=== PATIENT | male | born 1930 | race Caucasian/White ===

== ENCOUNTER 2017-01-20 06:31 | Day surgery (SDC) | payer MEDICARE ==
[2017-01-20] MEDS ORDERED: Lidocaine 1.5% EPI 1:200,000* 30 ML SDV ONE (07:11)
[2017-01-20] MEDS ORDERED: Bupivacaine 0.25% SDV* 30 ML ONE (07:29)
[2017-01-20 08:25] VITALS: BP 159/80
--- NOTE | 2017-01-24 13:17 | OP ---
DATE OF OPERATION: 01/20/17 [facility] DATE OF : 34 SURGEON: Armand Aaron MD CHALKER SOLES: MARGARITA Bailey ANESTHESIOLOGIST: None. ANESTHESIA: Local only with 1.5% lidocaine with epinephrine and bicarbonate. PRE-OP DIAGNOSIS: Right trigger thumb. POST-OP DIAGNOSIS: Right trigger thumb. OPERATIVE PROCEDURE: Right trigger thumb release. INDICATIONS: Ludwig is an 86-year-old gentleman for whom I injected the right trigger thumb. It resolved and recurred. We talked about his treatment options and he wanted to do the trigger finger release. FINDINGS: As expected. ESTIMATED BLOOD LOSS: 2 mL. COMPLICATIONS: None. DESCRIPTION OF PROCEDURE: Ludwig was seen in the preoperative holding area. The correct side, site, and procedure were identified. We had a time out and I then anesthetized the operative area with 1.5% lidocaine with epinephrine and bicarbonate. Short time later, we came back to the operating room and the arm was prepped and draped in the usual fashion and a formal time-out was performed. I began by making a 1-cm transverse incision in the MP joint flexion crease of the right thumb. Dissection was performed bluntly with the tenotomy scissors to release all the soft tissue right off of the flexor tendon sheath. Ragnell retractors were placed, under direct visualization the A1 [place] was incised in the midline with the 15-blade. The release was extended proximally and distally using the tenotomy scissors taking great care to avoiding damage to the digital nerves. Once I had the release completed, I had him flex and extend the thumb multiple times. There was absolutely no triggering. We irrigated out the wounds. Skin was closed with 4-0 nylon suture. Wound was dressed with Xeroform, some 1-inch Alen, and a Coban dressing. He was then taken to recovery room in stable condition. [id number]/[facility] #: [id number] [facility] CENTERSurinder
== END 2017-01-20 08:20 | disposition home or self-care (01) ==
LOC: OREAST 06:31
PROVIDERS: ATTEND Orthopaedic Surgery Hand Surgery
DX: M65.311 Trigger thumb, right thumb (principal); Z79.82 Long term (current) use of aspirin

== ENCOUNTER 2017-08-02 10:41 | Emergency (ER) | payer MEDICARE ==
--- OUTSIDE RECORDS SUMMARY | 2017-08-02 10:56 | XMS REPORT ---
:1930 External Reference #:[id number] Author Organization [facility] Address [address], [address] [place] [address] Phone [phone] Care Team Providers Name Role Phone Jaden Joshi DO Primary Care Physician Unavailable Payers Type Date Identification Numbers Payment Provider Subscriber Commercial Policy Number: [id number] [employer] Ludwig Stacy PayID: [id number] [address] [address] [place] [address] Problems Date Description Provider Status Onset: 01/31/2013 Dyspnea Alexander Morrison M.D., FACC Onset: 01/31/2013 Coronary arteriosclerosis Alexander Morrison M.D., FACC Onset: 01/31/2013 Atrial fibrillation Alexander Morrison M.D., FACC Onset: 01/31/2013 Benign essential hypertension Alexander Morrison M.D., FACC Onset: 01/31/2013 Hyperlipidemia Alexander Morrison M.D., FACC Onset: 04/25/2013 Malaise and fatigue Alexander Morrison M.D., FACC Onset: 09/02/2014 Pure hypercholesterolemia Active Onset: 09/02/2014 Essential hypertension Active Onset: 09/02/2014 Acute myocardial infarction Active Onset: 08/01/2014 Pure hypercholesterolemia Jaden Joshi DO Active Onset: 04/05/2013 Hypothyroidism Jaden Joshi DO Active Onset: 04/05/2013 Gastroesophageal reflux disease Jaden Joshi DO Active Onset: 04/05/2013 Obesity Jaden Joshi DO Active Onset: 11/29/2012 Crohn's disease of large bowel Konrad Bishop MD Active Onset: 06/04/2008 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 Onset: 10/10/2007 Degenerative joint disease involving Konrad Bishop MD Active multiple joints Onset: 10/10/2007 Diverticulitis of colon Konrad Bishop MD Active Onset: 04/04/2006 Anemia Konrad Bishop MD Active Onset: 09/30/2005 Abdominal aortic aneurysm without Konrad Bishop MD Active rupture Onset: 09/30/2005 Abnormal weight gain Konrad Bishop MD Active Onset: 10/14/2004 Mixed hyperlipidemia Konrad Bishop MD Active Onset: 12/03/2016 Pre-excitation syndrome Alexander Morrison M.D., [facility] Family History Date Family Member(s) Problem(s) Comments Father due to MS () - 78 : (age 85 Years) Mother due to MS Social History Type Date Description Comments Lives With Alone Diet Patient follows no dietary restrictions Occupation [employer]L's/IADL's Independent with all ADL's Cigarette Use Former Cigarette Smoker Cigarette Use 1961 Quit Cigarette Use Pack Years - 11 ETOH Use Occasionally consumes alcohol Daily Caffeine Consumes on average 2 cups of regular coffee per day Allergies, Adverse Reactions, Alerts Date Description Reaction Status Severity Comments 01/31/2013 NKDA active Medications Medication Date Status Form Strength Qnty SIG Indications Ordering Provider Sertraline HCL Active Tablets 50mg 30tabs 1 po qd Unknown 000 Terazosin HCL Active Capsules 5mg 1 po qd Unknown 000 Atorvastatin Active Tablets 80mg 1 by Unknown Calcium 000 mouth every day Metoprolol Active Tablets 50mg 1 by Unknown Tartrate 000 mouth twice a day Brilinta Active Tablets 90mg 1 tab Unknown 000 by mouth twice a day Eliquis Active Tablets 5mg 1 tab Unknown 000 by mouth twice a day Digoxin Active Tablets 125mcg 1 by Unknown 000 mouth every day Furosemide Active Tablets 20mg 1 by Unknown 000 mouth every day Plavix Hx Tablets 75mg 14tabs 1 po qd [address] Duggan Juventino Townsend., [facility] Omeprazole Hx Capsules 20mg 30caps 1 po qd Unknown [address] Levothyroxine Hx Tablets 50mcg 60tabs 1 po qd Unknown Sodium 000 Enalapril Hx Tablets 5mg 90tabs po qd Unknown Maleate 000 Vytorin Hx Tablets 10-80mg 90tabs 1 po qd Unknown 000 Carvedilol Hx Tablets 12.5mg 60tabs 1 po Unknown 000 - bid [address] Ec Hx Tablets [address] 325mg 90tabs 1 po qd Unknown 000 Apriso Hx Caps ER 0.375gm 4 po qd Unknown 000 24HR Simvastatin Hx Tablets 80mg 90tabs 1 by Ileana 000 mouth Simonetta every , day 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, 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 Vital Signs Date Vital Result Comment 07/05/2017 BP Systolic 122 mmHg BP Diastolic 70 mmHg Heart Rate 71 /min Respiratory Rate 16 /min Weight 186.00 lb 12/03/2016 BP Systolic Sitting Right Arm 118 mmHg BP Diastolic Sitting Right Arm 68 mmHg Heart Rate 84 /min Respiratory Rate 18 /min Height 69 inches 5'9" Weight 194.00 lb BMI (Body Mass Index) 28.6 kg/m2 BSA (Body Surface Area) 2.04 m2 [place] body weight in kilograms 73 11/26/2015 BP Systolic Sitting Left Arm 122 mmHg BP Diastolic Sitting Left Arm 60 mmHg Heart Rate 77 /min Height 69 inches 5'9" Weight 194.00 lb BMI (Body Mass Index) 28.6 kg/m2 BSA (Body Surface Area) 2.04 m2 [place] body weight in kilograms 73 11/22/2014 BP Systolic Sitting Left Arm 128 mmHg BP Diastolic Sitting Left Arm 62 mmHg Heart Rate 80 /min Respiratory Rate 16 /min Height 69 inches 5'9" Weight 191.00 lb BMI (Body Mass Index) 28.2 kg/m2 BSA (Body Surface Area) 2.03 m2 09/03/2014 BP Systolic 130 mmHg BP Diastolic 70 mmHg 09/03/2014 BP Systolic 130 mmHg BP Diastolic 70 mmHg Heart Rate 76 /min Height 69 inches Weight 190.00 lb BMI (Body Mass Index) 28.1 kg/m2 08/06/2014 Heart Rate 78 /min Respiratory Rate 20 /min Height 67 inches Weight 190.00 lb BMI (Body Mass Index) 29.8 kg/m2 04/25/2014 BP Systolic Sitting Right Arm 130 mmHg BP Diastolic Sitting Right Arm 68 mmHg Heart Rate 77 /min Respiratory Rate 20 /min Height 69 inches 5'9" Weight 195.00 lb BMI (Body Mass Index) 28.8 kg/m2 BSA (Body Surface Area) 2.04 m2 10/17/2013 BP Systolic Sitting Right Arm 142 mmHg BP Diastolic Sitting Right Arm 80 mmHg Heart Rate 78 /min Respiratory Rate 16 /min Height 69 inches 5'9" Weight 194.00 lb BMI (Body Mass Index) 28.6 kg/m2 BSA (Body Surface Area) 2.04 m2 04/25/2013 BP Systolic Sitting Right Arm 122 mmHg BP Diastolic Sitting Right Arm 64 mmHg Heart Rate 60 /min Respiratory Rate 16 /min Height 69 inches 5'9" Weight 193.00 lb BMI (Body Mass Index) 28.5 kg/m2 BSA (Body Surface Area) 2.03 m2 02/19/2013 BP Systolic Sitting Right Arm 130 mmHg BP Diastolic Sitting Right Arm 76 mmHg Heart Rate 60 /min Respiratory Rate 16 /min Height 69 inches 5'9" Weight 196.00 lb BMI (Body Mass Index) 28.9 kg/m2 BSA (Body Surface Area) 2.05 m2 01/31/2013 BP Systolic Sitting Right Arm 124 mmHg BP Diastolic Sitting Right Arm 76 mmHg Heart Rate 76 /min Respiratory Rate 16 /min Height 69 inches 5'9" Weight 191.00 lb BMI (Body Mass Index) 28.2 kg/m2 BSA (Body Surface Area) 2.03 m2 Results Test Date Test Result H/L Range Note Comprehensive Metabolic Panel 02/24/2013 Glucose 95 mg/dL 76-115 BUN 24 mg/dL High 5-23 Creatinine 0.9 mg/dL 0.5-1.4 Glom Filtration Rate, Estimate >60 mL/min >60 If >60 mL/min >60 1 BUN/Creat 26.6 ratio Sodium 141 mmol/L 136-145 Potassium 4.4 mmol/L 3.5-5.1 Chloride 107 mmol/L 98-107 Carbon Dioxide 28 mEq/L 18-29 Anion Gap 10 mEq/L 8-16 Calcium 8.4 mg/dL Low 8.5-10.1 Total Protein 8.1 g/dL High 6.3-8.0 Albumin 3.8 g/dL 3.5-5.0 Globulin 4.3 g/dL 1.9-4.3 Alb/Glob 0.9 ratio Bilirubin,Total 0.5 mg/dL 0.2-1.2 Sgot/Ast 16 U/L 16-40 SGPT/Alt 26 U/L Low 30-65 Alkaline Phosphatase 94 U/L 50-136 CBC W/Automated Diff 02/19/2013 White Blood Count 4.7 K/uL 3.4-10.5 Red Blood Count 3.64 M/uL Low 4.20-5.80 Hemoglobin 12.0 gm/dL Low 12.8-17.0 Hematocrit 36.1 % Low 38.0-48.0 Mean Cell Volume 99.2 fl High 80.0-96.0 Mean Corpuscular HGB 33.0 pg 27.0-33.0 Mean Corpuscular HGB Conc 33.2 g/dL 31.7-36.0 Platelet Count 164 K/uL 150-400 Red Cell Distri Width SD 49.2 fl 36-51 Red Cell Distri Width %CV 13.9 % 11.6-15.8 Mean Platelet Volume 11.7 fL High 6.6-10.6 Neut% 49.8 % 33.0-73.0 Lymph % 30.7 % 17.0-56.0 Stokes % 13.9 % High 0.0-10.0 Eo% 5.4 % High 0.0-5.0 Bas% 0.2 % 0.1-1.0 Neut# 2.32 K/uL 1.8-7.0 Lymph # 1.43 K/uL 1.2-4.0 Stokes # 0.65 K/uL High 0.0-0.6 Eos # 0.25 K/uL 0.0-0.5 Baso # 0.01 K/uL Low 0.1-0.2 Laboratory test finding 02/19/2013 Comprehensive Metabolic Panel See Note 2 1 Note: Persistent reduction for 3 months or more in an eGFR <60 mL/min/1.73 m2 defines CKD. Patients with eGFR values >/=60 mL/min/1.73 m2 may also have CKD if evidence of persistent proteinuria is present. The original MDRD equation for estimated GFR is not valid for patients less than 18 years of age. Additional information may be found at www.kdoqi.org. 2 SPECIMEN IS GROSSLY HEMOLYZED, PLEASE CALL PHYSICIAN'S OFFICE TO ARRANGE FOR RECOLLECTION, THANK YOU. Procedures Date CPT Code Description Status 07/05/2017 77699 EKG-Tracing And Report Completed 12/03/2016 60615 EKG-Tracing And Report Completed 11/26/2015 24939 EKG-Tracing And Report Completed 04/25/2014 60867 EKG-Tracing And Report Completed 02/14/2013 39097 Stress Test Interpre And Report Only Completed 02/14/2013 61190 Stress Test Physician Super Only Completed 02/14/2013 81969 Stress Test Physician Super Only Completed 02/14/2013 97379 Myocardial Imaging Tomographic Multiple Study At Rest Completed Or Stress 01/31/2013 90243 EKG-Tracing And Report Completed 01/02/2013 53166 Echocardiogram Complete Completed 05/13/2009 08350 Stress Test Interpre And Report Only Completed 05/13/2009 28887 Stress Test Physician Super Only Completed Encounters Type Date Location Provider CPT E/M Dx Office Visit 07/05/2017 11:15a [place] [address] I25.10 I25.5 I71.4 I45.6 I48.0 Office Visit 12/03/2016 1:20p Cardiology Office Que [place], 25857 I25.10 M.DErnie, FACC I71.4 I45.6 Office Visit 11/26/2015 10:40a Cardiology Office Ileana Fult[place], 09295 I25.10 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, 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 I71.4 I10 E78.5 Office Visit 11/22/2014 11:20a Cardiology Office [place], 80590 780.79 M.D., FACC 414.01 401.1 Office Visit 04/25/2014 8:30a Cardiology Office [place], 43696 414.01 M.D., FACC 780.79 786.05 401.1 272.4 Office Visit 10/17/2013 11:40a Cardiology Office Ileana [place], 13447 414.01 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, 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 Will need repeated Echo and he will likely benefit greatly from cardiac rehab. On Brilinta, Lipitor, Metoprolol. Not on ACEI due to ? hypotension while in hospital.I25.5 Ischemic cardiomyopathyComments:Has wide QRS consistent with LBBB. Will need to repeat Echo for EF reassessment.Pt was on Enalapril previously which was stopped at [facility] due to low BP and to allow increase in beta blockade for rate controlling purposes while in Afib. BP today is reasonable. He still feels weak and somewhat lightheaded with positional changes. IF EF < 40% on repeated Echo, will need to try re challenging him with ACEI/Entresto and if EF < 35%, will need to discuss possible device fcciyqhY65.4 Abdominal aortic aneurysm, without ruptureComments: CT done 12/2016 showed unchanged 4.7 cm AAA. EriftmaeoryiQ21.6 Pre-excitation syndromeComments:It appears that even while in IVANA in hospital, he was not conducting through accessory pathway. His Afib was very likely ischemic. Will recheck ECG on next visit. May need to use Amiodarone in future if recurrent frequent jadktgijetrtkL69.0 Paroxysmal atrial fibrillationComments:On Eliquis and Metoprolol / Digoxin. Will get a 30 day monitoring at next office visit since his Afib was very likely ischemic. Will need to consider risks and benefits of dual therapy with Plavix and Eliquis. May consider ILR for skilled nursing AF burden monitoringAllFollow up:6-8 weeks
[2017-08-02 11:16] VITALS: BP 126/69
--- NOTE | 2017-08-02 11:57 | RAD ---
HISTORY: Cough COMPARISONS: None VIEWS: 4: Frontal dual-energy and lateral views of the chest. FINDINGS: CARDIOMEDIASTINAL SILHOUETTE: The cardiomediastinal silhouette is normal. ISABELLA: The isabella are normal. PLEURA: The costophrenic angles are sharp. No pleural abnormalities are noted. LUNG PARENCHYMA: There is hyperinflation with flattening of the diaphragm and expansion of the AP diameter of the chest. ABDOMEN: The upper abdomen is clear. There is no subphrenic gas. BONES AND SOFT TISSUES: Degenerative changes are noted along the spine. OTHER: None. IMPRESSION: NO ACTIVE CARDIOPULMONARY DISEASE.
--- NOTE | 2017-08-02 12:06 | UC ---
Respiratory Complaint HPI - HPI Summary HPI Summary: cough x 2 weeks + chest congestion , productive cough with yellow sputum no fever, + chills, + sob - History of Current Complaint Chief Complaint: UCRespiratory Stated Complaint: COUGH *2WEEKS Time Seen by Provider: 08/02/17 11:32 Hx Obtained From: Patient Onset/Duration: Gradual Onset, Lasting Weeks - 2, Still Present Timing: Constant Severity Initially: Moderate Severity Currently: Moderate Pain Intensity: 0 Character: Cough: Productive Aggravating Factors: Exertion, Deep Breaths Associated Signs And Symptoms: Positive: Dyspnea, Chills, URI, Nasal Congestion. Negative: Fever, Pleuritic Chest Pain, Wheezing, Hemoptysis, Dizziness, Calf Pain, Calf Swelling, Edema - Allergies/Home Medications Allergies/Adverse Reactions: Allergies Allergy/AdvReac Type Severity Reaction Status Date / Time No Known Allergies Allergy Verified 08/02/17 11:13 Home Medications: Home Medications Aspirin TAB* [Aspirin 325 MG TAB*] 325 mg PO DAILY 08/02/17 [History Confirmed 08/02/17] PMH/Surg Hx/FS Hx/Imm Hx Cardiovascular History: Cardiac Disease, Hypertension - Surgical History Surgical History: None - Family History Known Family History: Positive: Hypertension - Social History Alcohol Use: Occasionally Substance Use Type: None Smoking Status (MU): Former Smoker Review of Systems Constitutional: Chills, Fatigue Skin: Negative Eyes: Negative ENT: Nasal Discharge Respiratory: Shortness Of Breath, Cough Cardiovascular: Negative Gastrointestinal: Negative Is Patient Immunocompromised?: No All Other Systems Reviewed And Are Negative: Yes Physical Exam Triage Information Reviewed: Yes Appearance: Well-Appearing, No Pain Distress, Well-Nourished Vital Signs: Initial Vital Signs Temp 99 F 08/02/17 11:11 Pulse 92 08/02/17 11:11 Resp 20 08/02/17 11:11 BP 126/69 08/02/17 11:11 Pulse Ox 97 08/02/17 11:11 Vital Signs Reviewed: Yes Eyes: Positive: Conjunctiva Clear ENT: Positive: Normal ENT inspection, Hearing grossly normal, Pharynx normal, Nasal drainage Neck: Positive: Supple, Nontender, No Lymphadenopathy Respiratory: Positive: Crackles - left upper lungs Cardiovascular: Positive: RRR, No Murmur, Pulses Normal Skin Exam: Normal UC Diagnostic Evaluation - Laboratory O2 Sat by Pulse Oximetry: 97 Diagnostic Studies Comment: chest xray : no acute disease Respiratory Course/Dx - Differential Dx/Diagnosis Provider Diagnoses: pneumonia Discharge - Discharge Plan Condition: Stable Disposition: HOME Prescriptions: Benzonatate CAP* [Tessalon 100 MG CAP*] 100 mg PO TID PRN #21 cap PRN Reason: Cough DOXYcycline CAP(*) [DOXYcycline 100MG CAP(*)] 100 mg PO BID #20 cap Patient Education Materials: Pneumonia (ED) Referrals: Jaden Joshi DO [Primary Care Provider] - 3 Days
== END 2017-08-02 12:05 | disposition home or self-care (01) ==
LOC: UCCORT 10:41
DX: J18.9 Pneumonia, unspecified organism (principal); Z87.891 Personal history of nicotine dependence; I10 Essential (primary) hypertension; I51.9 Heart disease, unspecified; Z79.82 Long term (current) use of aspirin
CPT/HCPCS: 71046; 99212; G0463